=== PATIENT | female | born 1970 | race African-American/Black ===

== ENCOUNTER 2018-01-25 04:44 | Emergency (ER) | payer SELFPAY ==
[~2018-01-25] VITALS: Ht 165.1 cm; Wt 99.8 kg
[2018-01-25 05:05] VITALS: BP 110/60
== END 2018-01-25 08:11 | disposition left against medical advice (07) ==
LOC: EDBD 04:44 → ER 04:44
DX: R11.2 Nausea with vomiting, unspecified (principal); Z53.21 Procedure and treatment not carried out due to patient leaving prior to being seen by health care provider